=== PATIENT | male | born 1995 | race Caucasian/White ===

== ENCOUNTER → 2019-09-08 | Day surgery (SDC) | payer OTHER ==
[~2019-09-08] MED LIST: NORCO 5-325 TA1 EAC1 PO
[2019-09-08 06:41] LABS: CALCIUM 9.6 mg/dL (8.5-10.1); CREATININE 1.1 mg/dL (0.6-1.3); POTASSIUM 3.9 mmol/L (3.5-5.1)
[2019-09-08 06:50] LABS: HEMATOCRIT 43.1 % (42.0-52.0); HEMOGLOBIN 15.5 gm/dL (14.0-18.0); MCH 30.6 pg (26.0-34.0); MCHC 36.1 g/dL (28.0-37.0); MCV 84.9 fL (80.0-100.0); MPV 8.5 fl. (7.2-11.1); RBC 5.07 mil/uL (4.50-6.00); RDW-CV 12.3 % (10.5-14.5); WBC 6.8 thou/uL (4.0-11.0)
--- NOTE | 2019-09-08 08:55 | EKG ---
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 : 1995 Requested By: Gregorio Bhatt Order Number: [id number] Tiffany MD: Juan J Vasquez Measurements Intervals [place] Rate: 52 P: -30 VA: 117 QRS: 23 QRSD: 111 T: 25 QT: 397 QTc: 370 Interpretive Statements Sinus bradycardia Borderline short VA interval ST elev, probable normal early repol pattern No previous ECG available for comparison Electronically Signed On 09-08-2019 8:54:54 INVENTORY CONTROL ASSISTANT by Juan J Vasquez [email or web address] <ELECTRONICALLY SIGNED> By: Juan J Vasquez MD, [facility] 09/08/19 0854 [id number] 0650 Juan J Vasquez MD, FACC /EPI
--- NOTE | 2019-09-29 11:43 | OP ---
[facility] [address] [place] [address] OPERATIVE REPORT Name: DARVIN QUINTERO Room: [facility]#: [id number] Admission: 09/08/19 Attend Phys: Gregorio Bhatt Discharge: Date of : [birth year] Report #: [id number] THIS REPORT FOR: //name// CC: Barbara Bhatt DATE OF SERVICE: 09/08/2019 PREOPERATIVE DIAGNOSIS: Incarcerated recurrent ventral incisional hernia. POSTOPERATIVE DIAGNOSIS: Incarcerated recurrent ventral incisional hernia. OPERATION: Laparoscopic repair of recurrent incarcerated ventral incisional hernia with mesh. SURGEON: Gregorio Bhatt MD ANESTHESIA: General. ESTIMATED BLOOD LOSS: Minimal. SPECIMEN: None. DESCRIPTION OF PROCEDURE: After informed consent was obtained, the patient was brought to the operating room and placed supine. SCDs were placed and working, preoperative antibiotics were administered, general anesthesia was induced. The abdomen was prepped and draped in the usual sterile fashion. A 5-mm incision was made in the left upper quadrant. A 5-mm trocar was placed under direct vision. Pneumoperitoneum was established. A left-sided 8-mm trocar was placed. He had an interesting finding of a diverticulum that was adherent to the area below the umbilicus. Pictures were taken to document this. This looked to be a small bowel diverticulum. Given that it was not involved in the hernia, I elected to leave it alone. He had incarcerated preperitoneal fat in the hernia defect above the umbilicus. This was all carefully reduced. The hernia defect measured less than 1 cm. A Ventralight mesh measuring approximately 8.5 cm in diameter was inserted. It was brought to the abdominal wall and tacked with 25 absorbable tacks. The mesh laid nice and flat and covered the defect widely. The ports were removed under direct vision. The skin was closed with 4-0 Monocryl. Incisions were sealed with Dermabond. COMPLICATIONS: [place] [address] OPERATIVE REPORT Name: DARVIN QUINTERO Room: [facility]#: [id number] Admission: 09/08/19 Attend Phys: Gregorio Bhatt Discharge: Date of : [birth year] Report #: [id number] DISPOSITION: The patient was taken to recovery in satisfactory condition. <ELECTRONICALLY SIGNED> By: Gregorio Bhatt MD 09/29/19 1143 0830 [id number] Bhatt MD /nt
== END | disposition home or self-care (01) ==
LOC: M.SUR 05:32
PROVIDERS: Surgery
DX: K43.0 Incisional hernia with obstruction, without gangrene (principal); Z79.891 Long term (current) use of opiate analgesic